=== PATIENT | female | born 1960 | race Caucasian/White ===

== ENCOUNTER 2017-12-17 12:36 | Emergency (ER) | payer OTHER ==
[2017-12-17] MEDS: ONDANSETRON 4 MG INJ IV (14:17)
[2017-12-17] MEDS: morphine 4 MG/ML VIAL IV (14:18)
[2017-12-17] MEDS: SOD CHLORIDE 0.9% 1,000 ML IV (14:18)
[2017-12-17 14:21] LABS: ADD MAN DIFF? NO
[2017-12-17 14:26] LABS: BASOPHILS % 0.4 % (0.0-2.0); EOSINOPHILS # 0.1 10^3/ul (0.0-0.5); EOSINOPHILS % 1.4 % (0.0-7.0); IMMATURE GRANS #M 0.02 10^3/ul; IMMATURE GRANS % (M) 0.2 %; LYMPHOCYTES # 4.1 10^3/ul (0.8-2.9); LYMPHOCYTES % 45.2 % (15.0-51.0); MEAN CORPUSCULAR HEMOGLOBIN 29.5 pg (29.0-33.0); MEAN CORPUSCULAR HGB CONC 33.3 g/dl (32.0-37.0); MEAN CORPUSCULAR VOLUME 88.4 fl (82.0-101.0); MEAN PLATELET VOLUME 9.6 fl (7.4-10.4); MONOCYTE # 0.6 10^3/ul (0.3-0.9); MONOCYTES % 6.1 % (0.0-11.0); NEUTROPHIL # 4.2 10^3/ul (1.6-7.5); NEUTROPHILS % 46.7 % (39.0-77.0); PLATELET COUNT 358 10^3/UL (140-415); RED BLOOD COUNT 4.75 10^6/ul (4.20-5.40)
[2017-12-17 14:46] LABS: INR 0.83; PARTIAL THROMBOPLASTIN TIME 25.4 Sec (25.0-35.0); PROTIME 11.5 Sec (11.9-14.9); PT RATIO 0.9
[2017-12-17 15:03] LABS: ALANINE AMINOTRANSFERASE 52 IU/L (13-69); ALBUMIN 4.2 g/dl (3.3-4.9); ALKALINE PHOSPHATASE 84 IU/L (42-121); AMYLASE 65 U/L (11-123); ANION GAP 12 (8-16); ASPARTATE AMINO TRANSFERASE 54 IU/L (15-46); BILIRUBIN,INDIRECT 0.4 mg/dl (0-1.1); BILIRUBIN,TOTAL 0.4 mg/dl (0.2-1.3); BLOOD UREA NITROGEN 14 mg/dl (7-20); CALCIUM 9.2 mg/dl (8.4-10.2); CARBON DIOXIDE 24 mmol/L (21-31); CHLORIDE 108 mmol/L (97-110); CREATININE 0.73 mg/dl (0.44-1.00); GLUCOSE 92 mg/dl (70-220); LIPASE 114 U/L (23-300); POTASSIUM 4.3 mmol/L (3.5-5.1); SODIUM 140 mmol/L (135-144); TOTAL PROTEIN 7.7 g/dl (6.1-8.1)
[2017-12-17 15:14] LABS: TROPONIN-I < 0.010 ng/ml (0.000-0.120)
[2017-12-17] MEDS: KETOROLAC 30 MG INJ IV (16:35)
== END 2017-12-17 17:20 | disposition home or self-care (01) ==
LOC: E/R 12:36
DX: K80.20 Calculus of gallbladder without cholecystitis without obstruction (principal)
CPT/HCPCS: 76705; 80053; 82150; 83690; 84484; 85025; 85610; 85730; 93005; 96374; 96375; 99285-25

== ENCOUNTER 2018-02-21 11:20 | Day surgery (SDC) | payer OTHER ==
[~2018-02-21 11:20] MED LIST: CEFAZOLIN 1 GM INJ; CEFAZOLIN 2 GM/50 ML (PMX) 50 ML IVPB; LIDOCAINE 2% (SDV) 5 ML INJ; SOD CHLORIDE 0.9% 1,000 ML IV
[2018-02-21] MEDS ORDERED: PROPOFOL 100 ML (14:44)
[2018-02-21] MEDS ORDERED: DEXAMETHASONE 4 MG/ML 1 ML INJ (15:11)
[2018-02-21] MEDS ORDERED: ACETAMINOPHEN 1000MG/100ML IV 100 ML (15:11)
[2018-02-21] MEDS ORDERED: ROCURONIUM 50 MG INJ (15:11)
[2018-02-21] MEDS ORDERED: ONDANSETRON 4 MG INJ (15:13)
[2018-02-21] MEDS: BUPIVACAINE 0.25% (MPF) 30 ML INJ (15:21)
[2018-02-21] MEDS ORDERED: SUGAMMADEX SODIUM 200 MG/2 ML VIAL IV (15:23)
[2018-02-21] MEDS ORDERED: HYDROCODONE/APAP (5/325) TAB PO (15:30)
[2018-02-21] MEDS ORDERED: ONDANSETRON 4 MG INJ IV (16:00)
[2018-02-21] MEDS ORDERED: KETOROLAC 30 MG INJ IV (16:00)
[2018-02-21] MEDS ORDERED: METOCLOPRAMIDE 10 MG INJ IV (16:00)
[2018-02-21] MEDS ORDERED: FENTAnyl 50 MCG/ML VIAL IV ×2 (16:00)
[2018-02-21] MEDS: FENTAnyl 50 MCG/ML VIAL IV (16:00)
[2018-02-21] MEDS ORDERED: DIPHENHYDRAMINE 50 MG INJ IV (16:00)
[2018-02-21] MEDS ORDERED: ALBUTEROL 0.083% (NEB) 2.5 MG/3 ML AMP HHN (16:00)
[2018-02-21] MEDS ORDERED: LABETALOL HCL 20MG INJ IV (16:00)
[2018-02-21] MEDS ORDERED: hydrALAzine 20 MG INJ IV (16:00)
[2018-02-21] MEDS ORDERED: HYDROmorphONE 1 MG/5 ML IV SYRINGE IV ×3 (16:00)
[2018-02-21] MEDS ORDERED: OXYCODONE/ACETAMINOPHEN (5/325) TAB PO (16:00)
[2018-02-21] MEDS ORDERED: MEPERIDINE 25 MG INJ IV (16:00)
[2018-02-21] MEDS ORDERED: EPHEDrine SULFATE 50 MG/5 ML SYG IV (16:00)
[2018-02-21] MEDS: OXYCODONE/ACETAMINOPHEN (5/325) TAB PO (17:05)
== END 2018-02-21 18:08 | disposition home or self-care (01) ==
LOC: SDS 11:20
DX: K80.10 Calculus of gallbladder with chronic cholecystitis without obstruction (principal)
CPT/HCPCS: 47562; 88304